=== PATIENT | female | born 1975 | race Caucasian/White ===

== ENCOUNTER 2017-09-15 11:21 | Emergency (ER) | payer OTHER ==
[~2017-09-15] VITALS: Ht 175.3 cm; Wt 96.2 kg
[~2017-09-15 11:21] MED LIST: LEVO.025 PO; Z.0.BCPILL PO
--- NOTE | 2017-09-15 14:10 | PD ---
HPI Chief Complaint 37 weeks and 3 days Headache 1 day Date Seen: Sep 15, 2017 Time Seen: 13:50 Travel History International Travel<30 Days: No Contact w/Intl Traveler<30Days: No Known Affected Area: No History of Present Illness HPI 42 yo at 37 weeks and 3 days. EDC 10-03-2017 Pt states she has been followed past week for elevated BP compared to her baseline. patient states her BP normally runs low in 110s/70s, but has recently been elevated at 130s/70-80s. care with Dr Hayes Pt states 24 hour urine was returned wnl this week She reports feeling worse headaches and dizziness. Active movements. No vaginal bleeding Weeks Gestation: 37 Para: 0 : 1 History Past Medical History Narrative Medical Hypothyroidism Obstetric History Obstetric History Primigravida. AMA Past Surgical History Surgical History: No Previous Surgery Family History Family History: Negative Social History Alcohol Use: No Tobacco Use: No Substance Abuse: No Allergies-Medications (Allergen,Severity, Reaction): Coded Allergies: codeine (Unverified Allergy, Severe, VOMITING, 09/15/17) Home Meds Reported Medications Levothyroxine Sodium (Levothyroxine Sodium) Unknown Strength Tab, PO DAILY, TAB 05/10/16 Miscellaneous ( Control Pills) Tab, 1 TAB PO DAILY, TAB 05/10/16 Review of Systems Except as stated in HPI: all other systems reviewed are Neg Physical Exam Narrative GENERAL: Well-nourished, well-developed patient. SKIN: Warm and dry. HEAD: Normocephalic and atraumatic. EYES: No scleral icterus. No injection or drainage. ENT: No nasal drainage noted. Mucous membranes pink. Airway patent. NECK: Supple, trachea midline. No JVD. CARDIOVASCULAR: Regular rate and rhythm without murmurs, gallops, or rubs. RESPIRATORY: Breath sounds equal bilaterally. No accessory muscle use. BREASTS: Bilateral exam showed no masses , no retractions, no nipple discharge. ABDOMEN/GI: Abdomen soft, non-tender, bowel sounds present, no rebound, no guarding Gravid to [37] weeks size Fundal Height: [37] GENITOURINARY: External Genitalia: intact and normal in appearance BUS glands: [wnl] Cervix: [soft] Dilatation: [closed] Effacement: [50%] Station: [-3] Presentation: [vertex] Membranes: [intact or ruptured] Uterine Contractions: [-] FHT's: Category: [1] Baseline: [130s] Reactive: [-] Variability: [good] Decels: [none] EXTREMITIES: No cyanosis or edema. NORMAL DTRs at patella. No ankle clonus. BACK: Nontender without obvious deformity. No CVA tenderness. NEUROLOGICAL: Awake and alert. Motor and sensory grossly within normal limits. Five out of 5 muscle strength in all muscle groups. Normal speech. Data Data Vital Signs Reviewed: Yes Group B Strep: Negative MDM Medical Record Reviewed: Yes Interpretation(s) Gestational hypertension. PIH labs wnl.No protein in her urine. FHR Cat 1 at discharge Plan 37 weeks and 3 days Gestational Hypertension. Presented with headache and dizziness. Vitals stable We will send PI labs. Watch BP. 110s/70s here today Attending Attestation I interviewed and examined patient personally and was involved in all significant decision making. Diagnosis Diagnosis: Primary Impression: 37 weeks gestation of Additional Impressions: Gestational diabetes Premature uterine contractions Disposition: 01 DISCHARGE HOME Condition: Good Oz Villa MD Sep 15, 2017 14:10
[2017-09-15 14:54] VITALS: BP 128/81; PULSE 60
[2017-09-15 15:27] LABS: MEAN CELL VOLUME 92.8 FL (80.0-100.0); MEAN CORPUSCULAR HEMOGLOBIN 30.7 PG (27.0-34.0); MEAN CORPUSCULAR HGB CONC 33.1 % (32.0-36.0); PLATELET COUNT 303 TH/MM3 (150-450); RED BLOOD COUNT 4.31 MIL/MM3 (4.00-5.30); RED CELL DISTRIBUTION WIDTH 13.5 % (11.6-17.2); REVIEW FLAG FINAL; WHITE BLOOD COUNT 9.7 TH/MM3 (4.0-11.0)
[2017-09-15 15:31] LABS: BLOOD, URINE NEG (NEG); COMMENT (UR) CULT NOT INDICATED; CULTURE IF INDICATED CULT NOT INDICATED; GLUCOSE,URINE NEG (NEG); KETONE, URINE NEG (NEG); NITRITE,URINE NEG (NEG); SQUAMOUS EPITHELIAL CELL URINE 2 /hpf (0-5); URINE COLOR LIGHT-YELLOW (YELLW/STRAW)
[2017-09-15 15:47] LABS: ANION GAP 8 MEQ/L (5-15); AST (GOT) 21 U/L (15-37); BICARBONATE 23.1 MEQ/L (21.0-32.0); BLOOD UREA NITROGEN 10 MG/DL (7-18); CHLORIDE 107 MEQ/L (98-107); GLOMERULAR FILTRATION RATE 86 ML/MIN (>89); SODIUM (NA) 138 MEQ/L (136-145); URIC ACID 5.4 MG/DL (2.6-6.0)
[2017-09-15 15:49] LABS: POTASSIUM 4.2 MEQ/L (3.5-5.1)
[2017-09-15 15:50] LABS: ALKALINE PHOSPHATASE 117 U/L (45-117); ALT (GPT) 16 U/L (10-53); TOTAL BILIRUBIN ADULT 0.3 MG/DL (0.2-1.0)
[2017-09-15] MEDS ORDERED: ONDANSETRON HCL 4 MG/2 ML VIAL IV PUSH PRN (16:00)
[2017-09-15 16:15] VITALS: BP 109/71; PULSE 58
== END 2017-09-15 18:12 | disposition home or self-care (01) ==
LOC: HOBED 11:21
DX: O47.1 False labor at or after 37 completed weeks of gestation (principal); O24.419 Gestational diabetes mellitus in pregnancy, unspecified control; R51 Headache; R42 Dizziness and giddiness; O99.283 Endocrine, nutritional and metabolic diseases complicating pregnancy, third trimester; E03.9 Hypothyroidism, unspecified; Z3A.37 37 weeks gestation of pregnancy; Z88.5 Allergy status to narcotic agent; Z79.899 Other long term (current) drug therapy
CPT/HCPCS: 80053; 81001; 84550; 85027; 96360; 96361

== ENCOUNTER 2017-09-27 04:01 | Inpatient (IN) | payer OTHER ==
[2017-09-27] VITALS (74 sets, daily range): BP systolic 78–151; BP diastolic 51–105; PULSE 62–249; RESP 7–20; TEMP 97.9–98.6; O2SAT 88–100
[~2017-09-27] VITALS: Ht 175.3 cm; Wt 96.2 kg
[2017-09-27] MEDS ORDERED: CITRIC ACID-SODIUM CITRATE LIQ 30 ML UDC PO SCH (04:45)
[2017-09-27] MEDS ORDERED: LACTATED RINGER'S 1000 ML INJ 1,000 ML IV PRN (04:45)
[2017-09-27] MEDS ORDERED: MINERAL OIL 10 ML VIAL TOPICAL PRN (04:45)
[2017-09-27] MEDS ORDERED: ONDANSETRON HCL 4 MG/2 ML VIAL IV PUSH PRN (04:45)
[2017-09-27] MEDS ORDERED: SODIUM CHLORID 0.9% 500 ML INJ 500 ML IV PRN (04:45)
[2017-09-27] MEDS ORDERED: OXYTOCIN 30 UNITS-500ML PREMIX 500 ML IV ONE (04:45)
[2017-09-27] MEDS ORDERED: LIDOCAINE HCL 1% 50 ML VIAL I-DERMAL PRN (04:45)
[2017-09-27] MEDS ORDERED: LIDOCAINE HCL 1% 50 ML VIAL INFIL PRN (04:45)
--- NOTE | 2017-09-27 04:45 | PD ---
HPI Chief Complaint Rupture membranes at 03 100 with contractions Date Seen: Sep 27, 2017 Time Seen: 04:40 Travel History International Travel<30 Days: No Contact w/Intl Traveler<30Days: No Known Affected Area: No History of Present Illness HPI 6-year-old who is at 39 weeks gestation is in with rupture membranes at 3: 00 this morning with cleared fluid as well as contractions that began around the same time. Patient states that she was examined yesterday in the office and had a membrane sweep performed. Patient denies any antepartum compensations except for hypothyroidism for which she is on medication cervix yesterday was closed and she is group B strep negative Weeks Gestation: 39 Para: 0 : 1 History Past Medical History Narrative Medical Hypothyroidism Past Surgical History Narrative Surgical Laparoscopy due to infertility and endometriosis Family History Family History: Negative Social History Alcohol Use: No Tobacco Use: No Substance Abuse: No Allergies-Medications (Allergen,Severity, Reaction): Coded Allergies: codeine (Unverified Allergy, Severe, VOMITING, 09/15/17) Home Meds Reported Medications Levothyroxine Sodium (Levothyroxine Sodium) Unknown Strength Tab, PO DAILY, TAB 05/10/16 Miscellaneous ( Control Pills) Tab, 1 TAB PO DAILY, TAB 05/10/16 Review of Systems Except as stated in HPI: all other systems reviewed are Neg Physical Exam Narrative GENERAL: Well-nourished, well-developed patient. SKIN: Warm and dry. HEAD: Normocephalic and atraumatic. EYES: No scleral icterus. No injection or drainage. ENT: No nasal drainage noted. Mucous membranes pink. Airway patent. NECK: Supple, trachea midline. No JVD. CARDIOVASCULAR: Regular rate and rhythm without murmurs, gallops, or rubs. RESPIRATORY: Breath sounds equal bilaterally. No accessory muscle use. ABDOMEN/GI: Abdomen soft, non-tender, bowel sounds present, no rebound, no guarding Gravid to [38-] weeks size Fundal Height: [-] GENITOURINARY: External Genitalia: intact and normal in appearance BUS glands: [-Normal] Cervix: [-Mid position] Dilatation: [1-2-] Effacement: [-80] Station: [--2] Presentation: [Vertex-] Membranes: [ruptured with clear fluid Uterine Contractions: [-] Every 5 minutes FHT's: Category: [1-] Baseline: [140-] Reactive: [-Moderate] Variability: [-Moderate] Decels: [Absent-] EXTREMITIES: No cyanosis or edema. BACK: Nontender without obvious deformity. No CVA tenderness. NEUROLOGICAL: Awake and alert. Motor and sensory grossly within normal limits. Five out of 5 muscle strength in all muscle groups. Normal speech. Data Data Vital Signs Reviewed: Yes Orders Orders Ob (2e) Additional Admit Info (09/27/17 04:30) Group B Strep: Negative MDM Medical Record Reviewed: Yes Plan 42-year-old at 39 weeks with spontaneous rupture membranes and contractions She is group B strep negative and plans on eventually using an epidural for pain relief Advanced maternal age Hypothyroidism managed with thyroid placement medication Diagnosis Diagnosis: Primary Impression: Rupture of membranes with clear amniotic fluid Additional Impressions: Irregular uterine contractions 39 weeks gestation of Advanced maternal age, primigravida in third trimester, antepartum Hypothyroidism affecting in third trimester Yoselin Benson MD Sep 27, 2017 04:45
[2017-09-27] MEDS ORDERED: SODIUM CHLOR 0.9% 1000 ML INJ 1,000 ML IV PRN (05:05)
[2017-09-27 05:32] LABS: AUTOMATED NEUTROPHIL # 6.2 TH/MM3 (1.8-7.7); BASOPHIL # 0.1 TH/MM3 (0-0.2); BASOPHIL % 0.9 % (0.0-2.0); EOSINOPHIL # 0.1 TH/MM3 (0-0.4); HEMATOCRIT 37.6 % (35.0-46.0); HEMO FLAGS DIFF FINAL; LYMPH % 28.1 % (9.0-44.0); LYMPHOCYTE # 2.9 TH/MM3 (1.0-4.8); MEAN CELL VOLUME 92.3 FL (80.0-100.0); MEAN CORPUSCULAR HGB CONC 33.6 % (32.0-36.0); MONO % 8.6 % (0.0-8.0); NEUT % 61.4 % (16.0-70.0); PLATELET COUNT 286 TH/MM3 (150-450); RED BLOOD COUNT 4.07 MIL/MM3 (4.00-5.30); RED CELL DISTRIBUTION WIDTH 13.1 % (11.6-17.2); WHITE BLOOD COUNT 10.2 TH/MM3 (4.0-11.0)
[2017-09-27] MEDS: LACTATED RINGER'S 1000 ML INJ 1,000 ML IV SCH ×4 (05:56→11:16)
[2017-09-27] MEDS ORDERED: PREN29TA PO (06:03)
[2017-09-27] MEDS ORDERED: fentaNYL 2MCG-BUPIV 0.125% INJ 100 ML ONE (07:15)
[2017-09-27] MEDS ORDERED: OXYTOCIN 30 UNITS/NS 500ML PREMIX IV SCH (09:45)
[2017-09-27] MEDS ORDERED: TERBUTALINE INJ 1 MG/ML AMP ONE (10:59)
[2017-09-27] MEDS ORDERED: ALUMINUM/MAGNESIUM/SIMETH 30 ML CUP PO PRN (12:15)
[2017-09-27] MEDS ORDERED: ZOLPIDEM TARTRATE 5 MG TAB PO PRN (12:15)
[2017-09-27] MEDS ORDERED: ACETAMINOPHEN 325 MG TAB PO PRN (12:15)
[2017-09-27] MEDS ORDERED: BENZOCAINE 20% TOPICAL SPRAY 60 ML CAN TOPICAL PRN (12:15)
[2017-09-27] MEDS ORDERED: SODIUM CHLORIDE 0.9% FLUSH 10 ML FLUSH IV FLUSH PRN (12:15)
[2017-09-27] MEDS ORDERED: ONDANSETRON ODT 4 MG TAB PO PRN (12:15)
[2017-09-27] MEDS ORDERED: OXYTOCIN 30 UNITS-500ML PREMIX 500 ML IV SCH (12:15)
[2017-09-27] MEDS ORDERED: WITCH HAZEL 50%/GLYCERIN 12.5% 40 PAD JAR TOPICAL PRN (12:15)
[2017-09-27] MEDS: IBUPROFEN 800 MG TAB PO PRN ×2 (14:10→22:05)
[2017-09-27] MEDS ORDERED: MEASLES, MUMPS, RUBELLA VACCINE 0.5 ML VIAL SQ ONE (16:00)
[2017-09-27] MEDS ORDERED: DIPHTH/TETANUS/ACEL PERTUSSIS (BOOSTER) 0.5 ML VIAL/PFS IM ONE (16:00)
[2017-09-27] MEDS: SODIUM CHLORIDE 0.9% FLUSH 10 ML FLUSH IV FLUSH SCH (21:00)
[2017-09-28] MEDS: IBUPROFEN 800 MG TAB PO PRN ×2 (06:45→20:20)
[2017-09-28] MEDS: DOCUSATE SODIUM 50 MG/SENNA 8.6 MG TAB PO PRN ×2 (06:51→20:20)
[2017-09-28 08:00] VITALS: BP 121/78; PULSE 61; RESP 14; TEMP 98.1
--- NOTE | 2017-09-28 11:31 | PD.OB.DELI ---
Weeks gestation: 39 Gest age assessed date: Sep 27, 2017 Gest age assessed time: 08:00 Pt started active labor?: Yes Active labor start date: Sep 27, 2017 Active labor start time: 08:00 Medical induction of labor?: No Artificial rupture of membrane: No Anesthesia: Epidural Episiotomy: None Vaginal Delivery: Normal, Vacuum Presentation: Occiput anterior Nuchal Cord: None, x1 Delayed cord clamping (45 sec): Yes : Female Delivery date: Sep 27, 2017 Delivery time: 12:00 One Minute : 9 Five Minute : 9 Weight: 7 6 Placenta: Spontaneous delivery Laceration: No lacerations, Perineal laceration, 1 deg Repair: Chromic interrupted Estimated blood loss: 200 Herminia Hayes MD Sep 28, 2017 11:31
--- NOTE | 2017-09-28 12:31 | HHI.OB ---
Subjective Post Day: 1 Remarks Doing well with nursing no pain comfortable Objective Vitals/I&O Vital Signs Date Time Temp Pulse Resp B/P (MAP) Pulse Ox O2 Delivery O2 Flow Rate FiO2 09/28/17 08:00 98.1 61 14 121/78 (92) 09/27/17 20:00 97.9 108 18 09/27/17 20:00 122/67 (85) 09/27/17 16:00 15 09/27/17 16:00 72 116/77 (90) 09/27/17 16:00 98.3 7 09/27/17 15:40 18 09/27/17 14:15 79 121/75 (90) 09/27/17 14:04 18 09/27/17 14:00 83 120/76 (91) 09/27/17 13:45 86 106/67 (80) 09/27/17 13:31 82 106/63 (77) 09/27/17 13:17 16 09/27/17 13:16 80 122/74 (90) 09/27/17 13:10 18 09/27/17 13:02 95 107/73 (84) Objective Remarks GENERAL: Well-nourished, well-developed patient. CARDIOVASCULAR: Regular rate and rhythm without murmurs, gallops, or rubs. RESPIRATORY: Breath sounds equal bilaterally. No accessory muscle use. ABDOMEN/GI: Abdomen soft, non-tender. Fundus: Firm, non-tender at umbilicus. GENITOURINARY: Light to moderate bleeding. EXTREMITIES: No cyanosis or edema, non-tender, without signs of DVT. Medications and IVs Current Medications Medications (Trade) Dose Ordered Sig/Ian Route Start Time Stop Time Status Last Admin Lactated Ringer's 1,000 ml @ 125 mls/hr Q8H IV 09/27/17 04:45 09/27/17 11:16 Lactated Ringer's 1,000 ml @ 3,000 mls/hr Q20M PRN IV 09/27/17 04:45 Sodium Chloride 500 ml @ 1,000 mls/hr ONCE PRN IV 09/27/17 04:45 Sodium Chloride 1,000 ml @ 100 mls/hr Q10H PRN IV 09/27/17 05:05 (Xylocaine 1% Inj (50 ml)) 0.1 ml UNSCH X1 PRN I-DERMAL 09/27/17 04:45 09/30/17 04:44 (Bicitra Liq) 30 ml CIVIL PROCESS SERVER PO 09/27/17 04:45 10/01/17 04:44 (fentaNYL INJ) 50 mcg Q1H PRN IV PUSH 09/27/17 04:45 (fentaNYL INJ) 100 mcg Q1H PRN IV PUSH 09/27/17 04:45 09/27/17 05:56 (Xylocaine 1% Inj (50 ml)) 10 ml UNSCH X1 PRN INFIL 09/27/17 04:45 09/29/17 04:44 (Muri-Lube Oil) 10 ml UNSCH PRN TOPICAL 09/27/17 04:45 Oxytocin 500 ml @ 2 mls/hr TITRATE IV 09/27/17 09:45 (NS Flush) 2 ml BID IV FLUSH 09/27/17 12:15 (NS Flush) 2 ml UNSCH PRN IV FLUSH 09/27/17 12:15 (Tylenol) 650 mg Q4H PRN PO 09/27/17 12:15 (Motrin) 800 mg Q8H PRN PO 09/27/17 12:15 09/28/17 06:45 (Americaine 20% Top Spr) 1 spray Q4H PRN TOPICAL 09/27/17 12:15 (Tucks Pads) 1 applic QID PRN TOPICAL 09/27/17 12:15 (Venita-Colace) 2 tab Q12H PRN PO 09/27/17 12:15 09/28/17 06:51 (Ambien) 5 mg HS PRN PO 09/27/17 12:15 (Mag-Al Plus Susp Liq) 15 ml Q8H PRN PO 09/27/17 12:15 (Zofran Odt) 4 mg Q6H PRN PO 09/27/17 12:15 Assessment/Plan Assessment and Plan Doing well after uneventful delivery anticipate discharge PPD 1 Herminia Hayes MD Sep 28, 2017 12:31
[2017-09-28 20:00] VITALS: BP 127/80; PULSE 62; RESP 18; TEMP 98
[2017-09-29] MEDS: IBUPROFEN 800 MG TAB PO PRN (04:50)
[2017-09-29 08:00] VITALS: BP 104/70; PULSE 72; RESP 16; TEMP 98.6
--- NOTE | 2017-09-29 08:55 | HHI.OB ---
Subjective Post Day: 3 Remarks N daily with difficulty, voiding spontaneously, pain is controlled, vaginal bleeding equal to menses. Objective Vitals/I&O Vital Signs Date Time Temp Pulse Resp B/P (MAP) Pulse Ox O2 Delivery O2 Flow Rate FiO2 09/29/17 08:00 98.6 72 16 104/70 (81) 09/28/17 20:00 127/80 (96) 09/28/17 20:00 98.0 62 18 Objective Remarks GENERAL: Well-nourished, well-developed patient. CARDIOVASCULAR: Regular rate and rhythm without murmurs, gallops, or rubs. RESPIRATORY: Breath sounds equal bilaterally. No accessory muscle use. ABDOMEN/GI: Abdomen soft, non-tender. Fundus: Firm, non-tender at umbilicus. GENITOURINARY: Light to moderate bleeding. EXTREMITIES: No cyanosis or edema, non-tender, without signs of DVT. Medications and IVs Current Medications Medications (Trade) Dose Ordered Sig/Ian Route Start Time Stop Time Status Last Admin Lactated Ringer's 1,000 ml @ 125 mls/hr Q8H IV 09/27/17 04:45 09/27/17 11:16 Lactated Ringer's 1,000 ml @ 3,000 mls/hr Q20M PRN IV 09/27/17 04:45 Sodium Chloride 500 ml @ 1,000 mls/hr ONCE PRN IV 09/27/17 04:45 Sodium Chloride 1,000 ml @ 100 mls/hr Q10H PRN IV 09/27/17 05:05 (Xylocaine 1% Inj (50 ml)) 0.1 ml UNSCH X1 PRN I-DERMAL 09/27/17 04:45 09/30/17 04:44 (Bicitra Liq) 30 ml SOFTWARE DEPLOYMENT ENGINEER PO 09/27/17 04:45 10/01/17 04:44 (fentaNYL INJ) 50 mcg Q1H PRN IV PUSH 09/27/17 04:45 (fentaNYL INJ) 100 mcg Q1H PRN IV PUSH 09/27/17 04:45 09/27/17 05:56 (Muri-Lube Oil) 10 ml UNSCH PRN TOPICAL 09/27/17 04:45 Oxytocin 500 ml @ 2 mls/hr TITRATE IV 09/27/17 09:45 (NS Flush) 2 ml BID IV FLUSH 09/27/17 12:15 (NS Flush) 2 ml UNSCH PRN IV FLUSH 09/27/17 12:15 (Tylenol) 650 mg Q4H PRN PO 09/27/17 12:15 (Motrin) 800 mg Q8H PRN PO 09/27/17 12:15 09/29/17 04:50 (Americaine 20% Top Spr) 1 spray Q4H PRN TOPICAL 09/27/17 12:15 (Tucks Pads) 1 applic QID PRN TOPICAL 09/27/17 12:15 (Venita-Colace) 2 tab Q12H PRN PO 09/27/17 12:15 09/28/17 20:20 (Ambien) 5 mg HS PRN PO 09/27/17 12:15 (Mag-Al Plus Susp Liq) 15 ml Q8H PRN PO 09/27/17 12:15 (Zofran Odt) 4 mg Q6H PRN PO 09/27/17 12:15 Assessment/Plan Assessment and Plan 42-year-old 011 status post vacuum-assisted vaginal delivery at 39 weeks 1. #3: Doing well, discharge him today, discussed need for follow-up. 2. Rh-, program per protocol 3. Elevated blood pressures: This is a time of her delivery, discussed preeclampsia precautions, had been normotensive since delivery. Branden Blum MD Sep 29, 2017 08:55
--- NOTE | 2017-09-29 08:57 | HHI.DCPOC ---
Discharge Care Plan Diagnosis: (1) 39 weeks gestation of (2) Advanced maternal age, primigravida in third trimester, antepartum (3) Hypothyroidism affecting in third trimester Your Health Problems Are: Vaginal delivery Report Symptoms to Your Doctor -Temperature above 100.5 degrees -Redness, of incision or excessive or foul smelling drainage -Unusual pain or calf pain -Increased vaginal bleeding -Painful or difficulty urinating -Feelings of extreme sadness or anxiety after 2 weeks Goals to Promote Your Health * To prevent worsening of your condition and complications * To maintain your health at the optimal level Directions to Meet Your Goals Take your medications as prescribed Follow your dietary instruction Follow activity as directed Ensure plenty of rest for recovery Drink fluids for hydration Keep your appointments as scheduled Take your immunizations and boosters as scheduled If your symptoms worsen call your PCP, if no PCP go to Urgent Care Center or Emergency Room Smoking is Dangerous to Your Health. Avoid second hand smoke Call the 24-hour crisis hotline for domestic abuse at Branden Blum MD Sep 29, 2017 08:56
[2017-09-29] MEDS: LACTATED RINGER'S 1000 ML INJ 1,000 ML IV SCH (09:31)
[2017-09-29] MEDS: SODIUM CHLORIDE 0.9% FLUSH 10 ML FLUSH IV FLUSH SCH (09:31)
== END 2017-09-29 12:12 | disposition home or self-care (01) | DRG 775 ==
LOC: HOBED 04:01 → H2EB 04:30 → H1EA 15:43
PROVIDERS: ADMIT Obstetrics & Gynecology; ATTEND Obstetrics & Gynecology
PROC: 00HU33Z Insertion of Infusion Device into Spinal Canal, Percutaneous Approach (ICD-10-PCS; 2017-09-27)
PROC: 3E0R3BZ Introduction of Anesthetic Agent into Spinal Canal, Percutaneous Approach (ICD-10-PCS; 2017-09-27)
PROC: 10E0XZZ Delivery of Products of Conception, External Approach (ICD-10-PCS; principal; 2017-09-28)
PROC: 0HQ9XZZ Repair Perineum Skin, External Approach (ICD-10-PCS; 2017-09-28)
DX: O99.284 Endocrine, nutritional and metabolic diseases complicating childbirth (principal); E03.9 Hypothyroidism, unspecified; Z37.0 Single live birth; Z3A.39 39 weeks gestation of pregnancy; O70.0 First degree perineal laceration during delivery
CPT/HCPCS: 59025; 80307; 84112; 85025; 86592; 86900; 86901; 90707; 90715; J2405; J2590; J3010; J3105; J7120